=== PATIENT | male | born 1980 | race Caucasian/White ===

== ENCOUNTER 2017-11-11 10:58 | Emergency (ER) | payer OTHER ==
[2017-11-11 11:08] VITALS: BP 161/90; BMI 39.3
[2017-11-11] MEDS ORDERED: BACTROBAN OINT TOP ONE (12:01)
[2017-11-11] MEDS ORDERED: BACTRIM DS TAB PO ONE (12:03)
[2017-11-11] MEDS ORDERED: KEFLEX CAP 500 MG PO ONE (12:03)
--- NOTE | 2017-11-11 12:13 | DR.GENAD ---
HPI - PCP Primary Care Physician: manuel sanabria - Complaint/Symptoms Chief Complaint Doctors Comments: Patient states he woke up with two blisters on the left side of his neck this morning that has gotten larger with pain and redness. States he has no other lesions. He is not a diabetic and is a patient of Dr. Gutierrez. He denies dysuria, cold, cough, fever or chills Chief Complaint:: "woke up with blister on the left side of neck" - Nurses notes reviewed Nurses Notes Review: Yes - Source History Provided: Patient - Mode of Arrival Mode of Arrival: Ambulatory - Timing Onset of Chief Complaint: 11/11/17 Came on: Suddenly - Duration Duration: Constant How lon Duration: Hours - Location Location: left lateral neck - Severity Severity: Moderate - Modifying Factors Worsens:: nothing Improves:: nothing PMH - PMH Past Medical History: No Past Surgical History: Yes Surgical History: Tonsillectomy - Family History History of Family Medical Conditions: Yes Family Medical History: Coronary Artery Disease, Heart Failure, Hypertension - Social History Does patient currently use any type of tobacco product: No Have you used tobacco products in the last 12 months: No Type of Tobacco Use: None Does any household member use tobacco: No Alcohol Use: None Do you use any recreational Drugs:: No Lives With: Family Lives Where: Home - infectious screening In the last 2 months have you had wt loss of >10#?: NO Have you had fever, night sweats or hemotysis?: No Have you traveled outside the country in the last 6 months?: No Isolation: Standard ROS - Review of Systems Constitutional: No Symptoms Reported Eyes: No Symptoms Reported. negative: See HPI, Eye Pain, Blurred Vision, Tearing, Discharge, Photophobia, Diplopia, Other ENTM: No Symptoms Reported Respiratoy: No Symptoms Reported Cardiovascular: No Symptoms Reported Gastrointestinal/Abdominal: No Symptoms Reported Genitourinary: No Symptoms Reported Neurological: No Symptoms Reported Musculoskeletal: No Symptoms Reported, Neck Pain (left lateral neck pain with blister) Integumentary: No Symptoms Reported, Rash (left lateral neck with 3-4 cm bullous lesion) Hematologic/Lymphatic: No Symptoms Reported Endocrine: No Symptoms Reported Psychiatric: No Symptoms Reported PE - Vital Signs Vitals: Temperature 98 F Pulse Rate 68 Respiratory Rate 20 Blood Pressure 161/90 O2 Sat by Pulse Oximetry 100 - General Limitations: No Limitations General Appearance: Alert, In Distress (slight) - Head Head Exam: Normal Inspection, Atraumatic, Normocephalic - Eyes Eye exam: Normal Appearance, PERRL, EOMI. negative: Scleral Icterus, Conjunctival Injection, Nystagmus, Miosis, Mydrasis, Periorbital Swelling, Periorbital Tenderness, Other - ENT ENT Exam: Normal Exam, Normal Oropharynx, Normal External Ear Exam, Mucous Membranes Moist, TM's Normal Bilaterally External Ear Exam: Normal External Inspection TM/Canal Exam: Bilateral Normal Nose Exam: Normal Nose Exam Mouth Exam: Normal Inspection Throat Exam: Normal Inspection - Neck Neck Exam: Normal Inspection, Full ROM, Trachea Midline, Tenderness (left lateral neck with two linear bullous lesion 1x3-4 cm with erythematous base, clear liquid) - Chest Chest Inspection: Normal Inspection, Symmetric Chest Wall Rise - Respiratory Respiratory Exam: Normal Lung Sounds Bilat Respiratory Exam: Bilateral Clear to Auscultation - Cardiovascular Cardiovascular Exam: Regular Rate, Normal Rhythm, Normal Heart Sounds - Abdominal Exam Abdominal Exam: Normal Inspection, Normal Bowel Sounds, Soft Abdominal Tenderness: negative: RUQ, RLQ, LUQ, LLQ, Epigastrium, Suprapubic, Diffuse, Mild, Moderate, Severe, Other - Extremities Extremities Exam: Normal Inspection, Full ROM, Normal Capillary Refill. negative: Tenderness, Edema, Joint Swelling, Calf Tenderness, Other - Back Back Exam: Normal Inspection, Full ROM - Neurologic Neurological Exam: Alert, Oriented X3, CN II-XII Intact, Normal Gait, Reflexes Normal - Psychiatric Psychiatric Exam: Normal Affect, Normal Mood - Skin Skin Exam: Warm, Dry, Intact, Normal Color, Rash (left lateral neck with erythematous bullous lesion) - Diagnosis Discharge Problem: Herpes zoster Cellulitis Qualifiers: Site of cellulitis: neck Qualified Code(s): L03.221 - Cellulitis of neck - Discharge Plan Condition: Stable Prescriptions: Cephalexin [KEFLEX CAP 500 MG *] 500 mg PO TID #30 cap Famciclovir 500 mg PO TID PRN #21 tablet PRN Reason: Ibuprofen [MOTRIN TAB 800 MG *] 800 mg PO Q8H PRN #30 tab PRN Reason: Pain/Inflammation Mupirocin Oint [BACTROBAN OINT 2%] 1 applic EXT BID #22 gm - Follow ups/Referrals Follow ups/Referrals: Cintia SANABRIA [Primary Care Provider] - 3 days - Instructions Instructions: Shingles, [id number], Contact Precautions, [id number], Cellulitis, Adult, [id number]
== END 2017-11-11 12:27 | disposition home or self-care (01) ==
LOC: ER 11:18
DX: B02.9 Zoster without complications (principal); L03.221 Cellulitis of neck
CPT/HCPCS: 99281; 99282